=== PATIENT | male | born 1965 | race African-American/Black ===

== ENCOUNTER 2016-07-31 16:16 | Emergency (ER) | payer OTHER ==
[~2016-07-31] VITALS: Ht 177.8 cm; Wt 108.9 kg
[2016-07-31 16:19] VITALS: BP 150/99
[2016-07-31] MEDS ORDERED: ULTRAM 50MG TAB50 MG PO (16:39)
[2016-07-31] MEDS ORDERED: NAPROSYN500 MG PO (16:39)
== END 2016-07-31 17:00 | disposition home or self-care (01) ==
LOC: ER 16:16
DX: M25.461 Effusion, right knee (principal); M70.861 Other soft tissue disorders related to use, overuse and pressure, right lower leg; F10.99 Alcohol use, unspecified with unspecified alcohol-induced disorder